=== PATIENT | female | born 1940 | race African-American/Black ===

== ENCOUNTER → 2017-10-30 | Day surgery (SDC) | payer MEDICARE, OTHER ==
[~2017-10-30] MED LIST: Ciprofloxacin 500 MG TAB ONE
== END ==
LOC: ER/OP 10:53
PROVIDERS: ATTEND Emergency Medicine
DX: Z20.811 Contact with and (suspected) exposure to meningococcus (principal)

== ENCOUNTER 2018-07-15 11:15 | Outpatient (CLI) | payer MEDICARE, OTHER ==
--- NOTE | 2018-07-15 11:52 | RAD ---
LUMBAR SPINE THREE VIEWS: History: Low back pain. FINDINGS: Comparison is made with exam of 10-17-10. Multilevel degenerative changes are again seen with minimal levoscoliosis. No fracture, subluxation, or bony destruction is identified. IMPRESSION: Lumbar spondylosis. POS: [facility]
== END 2018-07-15 11:16 | disposition home or self-care (01) ==
LOC: RAD-FRANK 11:15
PROVIDERS: ATTEND Nurse Practitioner Family
DX: M51.16 Intervertebral disc disorders with radiculopathy, lumbar region (principal); M47.26 Other spondylosis with radiculopathy, lumbar region
CPT/HCPCS: 72100

== ENCOUNTER 2018-09-06 13:51 | Emergency (ER) | payer MEDICARE, OTHER ==
--- NOTE | 2018-09-06 16:56 | ULT ---
VENOUS DUPLEX SONOGRAM LEFT LOWER EXTREMITY: 09/06/18 HISTORY: Left leg pain and edema. FINDINGS: The left common femoral vein and greater saphenous junction were evaluated along with the femoral, de ep femoral, popliteal, and posterior tibial veins. There is good color and spectral doppler flow, com pression, and augmentation. IMPRESSION: No sonographic evidence of DVT within the left lower extremity. POS: [facility]
== END 2018-09-06 16:09 | disposition home or self-care (01) ==
LOC: ERS 13:51
DX: M54.16 Radiculopathy, lumbar region (principal); E11.9 Type 2 diabetes mellitus without complications; I10 Essential (primary) hypertension; Z79.899 Other long term (current) drug therapy; Z79.84 Long term (current) use of oral hypoglycemic drugs

== ENCOUNTER 2018-10-02 13:20 | Outpatient (CLI) | payer MEDICARE, OTHER ==
--- NOTE | 2018-10-02 13:49 | RAD ---
LUMBAR SPINE 3 VIEWS: HISTORY: Low back pain. FINDINGS: Lateral views consistent of flexion, extension, and neutral positioning. Vertebral body heights are maintained. At the L3-4 level, there is 0.9 cm spondylolisthesis that develops upon flexion that is not apparent on the neutral and flexion images. Minimal degenerative retrolisthesis at the L4-5 leve l is present without abnormal translational motion at this level. Disk space narrowing most pronounc ed at the L4-5 level. Osteophytosis of the lower facets. IMPRESSION: Facet instability at the L3-4 level. POS: [facility]
--- NOTE | 2018-10-02 15:03 | MRI ---
MRI LUMBAR SPINE: HISTORY: Back pain radiating to left leg for 7 months. FINDINGS: Multiplanar, multisequence noncontrast-enhanced MR images of lumbar spine obtained. T12-L1: Unremarkable. L1-2: Disk desiccation is seen. There is disk space height loss seen. Anterior osteophyte is seen at the L1-2 level. There is mild facet hypertrophy seen. There is a broad-based disk-osteophyte com plex centrally resulting in mild but not significant degree of central stenosis. The neural foramen are patent. L2-3: Disk desiccation is seen. There is irregularity involving the inferior end plate of L2 and se don end plate of L3. There is a broad-based disk bulge with bilateral facet hypertrophy. No signifi cant degree of central stenosis seen. There is moderate left L2-3 neural foraminal narrowing. The r ight neural foramen is patent. L3-4: Disk desiccation is seen. There is a broad-based central disk protrusion seen. Bilateral fac et hypertrophy is seen. This results in mild central and lateral recess stenosis seen. There is mil d bilateral neural foraminal narrowing seen. L4-5: Disk desiccation is seen. There are Modic type II changes seen in the inferior end plate of L 4 and superior end plate of L5. There is a broad-based disk bulge with bilateral facet hypertrophy r esulting in mild central and lateral recess stenosis. Moderate bilateral neural foraminal narrowing is seen. L5-S1: There is a broad-based disk bulge with bilateral facet hypertrophy seen. The central canal i s patent. There is moderate to severe left and mild right-sided neural foraminal narrowing seen. Disk desiccation with disk space height loss seen at L4-5. Broad-based disk bulge is seen. Neural f oraminal narrowing is also present as described above. IMPRESSION: Multilevel lumbar degenerative disk changes. POS: [facility]
== END 2018-10-02 13:21 | disposition home or self-care (01) ==
LOC: TBSIIMAG 13:20
PROVIDERS: ATTEND Neurological Surgery
DX: M48.061 Spinal stenosis, lumbar region without neurogenic claudication (principal); M53.2X6 Spinal instabilities, lumbar region; M51.36 Other intervertebral disc degeneration, lumbar region
CPT/HCPCS: 72100; 72148

== ENCOUNTER 2018-11-07 08:24 | Outpatient (CLI) | payer MEDICARE, OTHER ==
--- NOTE | 2018-11-07 09:16 | RAD ---
LEFT WRIST 3 VIEWS: HISTORY: Left wrist pain. COMPARISON: None. FINDINGS: Mild degenerative changes and osteoarthrosis including the trapezium 1st metacarpal joint. No acute fracture or dislocation. IMPRESSION: Degenerative and osteoarthrosis changes without fracture or dislocation. POS: [facility]
== END 2018-11-07 08:25 | disposition home or self-care (01) ==
LOC: RAD-FRANK 08:24
PROVIDERS: ATTEND Nurse Practitioner Family
DX: M25.532 Pain in left wrist (principal); M19.032 Primary osteoarthritis, left wrist

== ENCOUNTER 2018-12-04 08:11 | Emergency (ER) | payer MEDICARE, OTHER ==
--- NOTE | 2018-12-04 09:10 | ULT ---
FUltrasound Doppler duplex venous left upper extremity: HISTORY: 78-year-old female with pain and edema at the left anterior wrist TECHNIQUE: Grayscale, color-flow, and spectral analysis, of major veins of left upper extremity. Compression and release applied to all veins except the subclavian. FINDINGS: The left internal jugular, subclavian, axillary, brachial, basilic, cephalic, radial, and ulnar, vein s, are patent, with blood flow. IMPRESSION: Negative. No venous thrombosis of left upper extremity.
== END 2018-12-04 09:24 | disposition home or self-care (01) ==
LOC: ERS 08:11
DX: M65.4 Radial styloid tenosynovitis [de Quervain] (principal); E11.9 Type 2 diabetes mellitus without complications; I10 Essential (primary) hypertension; Z79.84 Long term (current) use of oral hypoglycemic drugs; Z79.899 Other long term (current) drug therapy
CPT/HCPCS: 29125

== ENCOUNTER 2019-01-28 08:44 | Outpatient (CLI) | payer MEDICARE, OTHER ==
--- NOTE | 2019-01-28 11:26 | MRI ---
MRI LEFT WRIST: 01/28/2019 PROVIDED CLINICAL HISTORY: Left wrist pain. FINDINGS: There is a thickened and inhomogeneous appearance to the extensor carpi ulnaris tendon, at the level of the distal ulna, compatible with changes of tendinosis. The dorsal extensor and volar flexor tend ons demonstrate an otherwise normal MR appearance. There are joint effusions involving the radial carpal, distal radial ulnar, and mid carpal joints, wi th evidence for synovitis, particularly in the region of the distal radial ulnar joint. There is chr onic degenerative tearing involving the TFC complex, notably the central aspects of the TFC disk. In tact fibers of the scapholunate ligament are not identified volarly or dorsally. Intact fibers of th e lunotriquetral ligament are not definitely visualized. There is radial carpal joint space narrowing. Alignment appears anatomic. Degenerative changes are seen at the first CMC joint. The courses of the regional major neurovascular structures appear unremarkable. IMPRESSION: 1. Joint effusion and synovitis involving the mid carpal, the radial carpal, and the distal radial u lnar joints. Infectious and inflammatory arthropathy should be considered. 2. 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 Intact fibers of the lunotriq uetral ligament are not definitely identified. 3. Extensor carpi ulnaris tendinosis. POS: [facility]
== END 2019-01-28 08:45 | disposition home or self-care (01) ==
LOC: BICMRI 08:44
PROVIDERS: ATTEND Orthopaedic Surgery
DX: M65.4 Radial styloid tenosynovitis [de Quervain] (principal); M25.532 Pain in left wrist; M25.432 Effusion, left wrist; M65.88 Other synovitis and tenosynovitis, other site; M24.832 Other specific joint derangements of left wrist, not elsewhere classified; M77.9 Enthesopathy, unspecified

== ENCOUNTER 2019-03-11 16:09 | Outpatient (CLI) | payer MEDICARE, OTHER ==
--- NOTE | 2019-03-11 16:35 | RAD ---
TWO VIEW CHEST: 03/11/19 INDICATION: Cough. FINDINGS: There is enlargement of the cardiac silhouette. No significant vascular congestion. Mild interstitial prominence is seen bilaterally. No significant pleural fluid is evident. IMPRESSION: Prominent cardiac silhouette which may be related to CHF. Mild interstitial opacities may represent a ssociated interstitial edema. Recommend correlation for evidence of fluid overload. Imaging follow-up may also be obtained if necessary. POS: [facility]
== END 2019-03-11 16:10 | disposition home or self-care (01) ==
LOC: RAD-FRANK 16:09
PROVIDERS: ATTEND Nurse Practitioner Family
DX: R05 Cough (principal); R91.8 Other nonspecific abnormal finding of lung field
CPT/HCPCS: 71046

== ENCOUNTER 2019-03-19 13:11 | Outpatient (CLI) | payer MEDICARE, OTHER ==
[2019-03-19 16:21] LABS: #Lymphocytes 3.7 thou/uL (1.20-3.40); #Monocytes 0.9 thou/uL (0.11-0.59); %Basophils 0.5 % (0.0-1.0); %Eosinophils 0.4 % (0.0-10.0); %Lymphocytes 38.1 % (21.0-51.0); %Monocytes 9.3 % (0.0-10.0); %Neutrophils 51.7 % (42.0-75.0); Hemoglobin 12.4 g/dL (12.0-16.0); Mean Corpuscular HGB CONC 30.9 g/dL (32.0-36.0); Mean Corpuscular Hemoglobin 28.1 pg (27.0-31.0); Mean Corpuscular Volume 90.8 fL (78.0-98.0); Mean Platelet Volume 8.3 fL (7.4-10.4); Platelet Count 144 thou/uL (130-400); RBC Distribution Width 15.9 % (11.5-14.5); White Blood Cell (WBC) Count 9.7 thou/uL (4.8-10.8)
[2019-03-19 16:40] LABS: Anion Gap 19 mmol/L (10-20); BUN (Urea Nitrogen) 35 mg/dL (9.8-20.1); Calc. Creatinine Clearance 0 mL/min (70-130); Calcium 10.8 mg/dL (7.8-10.44); Carbon Dioxide 27 mmol/L (23-31); Chloride 101 mmol/L (98-107); Estimated GFR-MDRD 47; Glucose 89 mg/dL (83-110); Sodium 143 mmol/L (136-145)
[2019-03-19 19:37] LABS: Bacteria/HPF None Seen HPF (None Seen); Bilirubin Negative (Negative); Blood, Urine Negative (Negative); Clarity Clear (Clear); Glucose, Urine (Dipstick) Normal (Negative); Leukocyte 25 Leu/uL (Negative); Mucous/LPF Rare LPF (<2+); Nitrite Negative (Negative); Protein, Urine (Dipstick) Negative (Neg-Trace); RBC/HPF 0-3 HPF (0-3); Squamous Epithelial 0-3 HPF (0-3); Urobilinogen Normal mg/dL (Less than 2)
== END 2019-03-19 13:12 | disposition home or self-care (01) ==
LOC: LABBT 13:11
PROVIDERS: ATTEND Orthopaedic Surgery Hand Surgery
DX: Z01.818 Encounter for other preprocedural examination (principal); M65.4 Radial styloid tenosynovitis [de Quervain]
CPT/HCPCS: 80048; 81001; 85025; 93005; 93010

== ENCOUNTER 2019-03-23 11:46 | Day surgery (SDC) | payer MEDICARE, OTHER ==
[2019-03-19 14:07] VITALS: BMI 45.8
[2019-03-23] MEDS ORDERED: Betamet Acet/Betamet Na Ph 30 MG/5 ML VIAL ONE (13:23)
[2019-03-23] MEDS ORDERED: Bupivacaine PF 0.5% 30 ML VIAL ONE (13:23)
[2019-03-23] MEDS ORDERED: Fentanyl 100 MCG/2 ML VIAL ONE (13:33)
[2019-03-23] MEDS ORDERED: Bacitracin Zinc Ointment 30 gm TUBE ONE (14:29)
[2019-03-23] MEDS ORDERED: Ketorolac Tromethamine 30 MG/ML VIAL ONE (15:25)
[2019-03-23] MEDS ORDERED: Ondansetron PF 4 MG/2 ML Vial ONE (16:11)
[2019-03-23] MEDS ORDERED: PROPOFOL 200 MG/20 ML VIAL ONE (16:11)
[2019-03-23] MEDS ORDERED: Lidocaine 1% PF 5 ML VIAL ONE (16:11)
[2019-03-23] MEDS ORDERED: diphenhydrAMINE 50 MG/ML VIAL ONE (16:11)
--- NOTE | 2019-03-23 21:00 | OP ---
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 PROCEDURES PERFORMED: 1. Left first dorsal compartment release, wrist. 2. Celestone injection. TOURNIQUET TIME: 10 minutes. ANESTHESIA: General LMA technique, complemented by 20 mL of 0.5% Marcaine block, 10 mL given preincision, 10 mL given after wound was closed. INDICATIONS FOR PROCEDURE: Failed conservative treatment to include injections, bracing, therapy, medications, and cessation activity. DESCRIPTION OF PROCEDURE: After successful general LMA technique, the limb was prepped and draped. Time-out was done appropriately. We outlined a zigzag incision of 2.5 cm centered on the radial styloid and first dorsal compartment. After exsanguination, we then inflated the tourniquet to 250 mmHg pressure. We gave the 1st 10 mL of injection along the zigzag incision. Waited for 2 minutes and carried the incision through the skin and subcutaneous tissue until we found the cutaneous branch of the superficial radial nerve. All were dissected from the center of the field and protected. We then placed two right angle in and a self-retaining tractor, identified the retinaculum and released it in the midline of the retinaculum slightly more dorsal and palmar to prevent subluxation. We found that we had a separate extensor pollicis brevis compartment which was released separately and we also had three sleeves of the abductor pollicis. We then placed Celestone 5 mL along the tendon sheath, we deflated the tourniquet and obtained hemostasis, and then closed the incision with interrupted 4-0 nylon mattress pattern. There was no tenosynovectomy required because there was no tenosynovitis. There was no tenosynovial thickening. Job ID: [id number]
== END 2019-03-23 16:25 | disposition home or self-care (01) ==
LOC: SDC 11:46
PROVIDERS: ATTEND Orthopaedic Surgery Hand Surgery
PROC: 0LN60ZZ Release Left Lower Arm and Wrist Tendon, Open Approach (ICD-10-PCS; principal; 2019-03-23)
DX: M65.4 Radial styloid tenosynovitis [de Quervain] (principal); K21.9 Gastro-esophageal reflux disease without esophagitis; I10 Essential (primary) hypertension; E78.00 Pure hypercholesterolemia, unspecified; E11.9 Type 2 diabetes mellitus without complications; Z79.84 Long term (current) use of oral hypoglycemic drugs; Z79.899 Other long term (current) drug therapy
CPT/HCPCS: J0131; J0690; J0702; J1200; J1885; J2001; J2405; J2704; J3010; S0020

== ENCOUNTER 2020-08-05 12:04 | Emergency (ER) | payer MEDICARE, OTHER ==
[2020-08-05 12:50] LABS: #Eosinphils 0.1 thou/uL (0.0-0.7); #Lymphocytes 1.6 thou/uL (1.20-3.40); #Monocytes 0.6 thou/uL (0.11-0.59); %Basophils 0.1 % (0.0-1.0); %Eosinophils 0.7 % (0.0-10.0); %Lymphocytes 19.6 % (21.0-51.0); %Neutrophils 72.6 % (42.0-75.0); Mean Corpuscular HGB CONC 32.3 g/dL (32.0-36.0); Mean Corpuscular Hemoglobin 30.1 pg (27.0-31.0); Mean Platelet Volume 8.2 fL (7.4-10.4); Platelet Count 99 thou/uL (130-400); Red Blood Cell (RBC) Count 3.99 mill/uL (4.20-5.40); White Blood Cell (WBC) Count 8.3 thou/uL (4.8-10.8)
[2020-08-05 13:04] LABS: ALT (SGPT) 9 U/L (8-55); AST (SGOT) 13 U/L (5-34); Albumin 4.1 g/dL (3.4-4.8); Alkaline Phosphatase 79 U/L (40-110); Anion Gap 18 mmol/L (10-20); BUN (Urea Nitrogen) 22 mg/dL (9.8-20.1); Bilirubin, Total 0.5 mg/dL (0.2-1.2); Calc. Creatinine Clearance 0 mL/min (70-130); Calcium 9.4 mg/dL (7.8-10.44); Carbon Dioxide 25 mmol/L (23-31); Chloride 101 mmol/L (98-107); Estimated GFR-MDRD 64; Globulin 3.2 g/dL (2.4-3.5); Glucose 140 mg/dL (83-110); Lipase 28 U/L (8-78); Platelet Morphology Comment Appears Decreased; Potassium 3.7 mmol/L (3.5-5.1); Protein, Total 7.3 g/dL (6.0-8.3); RBC Morphology Normal; Sodium 140 mmol/L (136-145)
--- NOTE | 2020-08-05 13:37 | RAD ---
PORTABLE CHEST ONE VIEW: 08/05/20 at 12:43 p.m. HISTORY: Nausea and vomiting, lightheadedness. COMPARISON: 03/10/19. FINDINGS: The heart is enlarged. The aorta is tortuous. The lungs are expanded without lobar consolidation, pne umothoraces, louie pulmonary edema or pleural effusions. IMPRESSION: No acute process. POS: [facility]
[2020-08-05 14:23] LABS: Bacteria/HPF None Seen HPF (None Seen); Bilirubin Negative (Negative); Blood, Urine Negative (Negative); Clarity Clear (Clear); Glucose, Urine (Dipstick) Normal (Negative); Ketone, Urine Negative (Negative); Leukocyte 25 Leu/uL (Negative); Nitrite Negative (Negative); Protein, Urine (Dipstick) Negative (Neg-Trace); RBC/HPF 0-3 HPF (0-3); Specific Gravity, Urine 1.016 (1.002-1.036); Squamous Epithelial 0-3 HPF (0-3); Urobilinogen Normal mg/dL (Less than 2); pH, Urine 5.5 (5.0-9.0)
== END 2020-08-05 14:17 | disposition home or self-care (01) ==
LOC: ERS 12:04
DX: R11.2 Nausea with vomiting, unspecified (principal); R42 Dizziness and giddiness; T40.425A Adverse effect of tramadol, initial encounter
CPT/HCPCS: 36415; 71045; 80053; 81003; 81015; 83690; 84484; 85025; 93005

== ENCOUNTER 2021-06-26 10:08 | Outpatient (CLI) | payer MEDICARE, OTHER | END 2021-06-26 10:09 | disposition home or self-care (01) | LOC: TBSIIMAG 10:08 | PROVIDERS: ATTEND Nurse Practitioner Family | DX: M48.062 Spinal stenosis, lumbar region with neurogenic claudication (principal); M47.816 Spondylosis without myelopathy or radiculopathy, lumbar region | CPT/HCPCS: 72100; 72148 ==

== ENCOUNTER 2023-02-26 20:27 | Emergency (ER) | payer MEDICARE, OTHER ==
[2023-02-26 22:50] LABS: Bacteria/HPF None Seen HPF (None Seen); Bilirubin Negative (Negative); Blood, Urine Negative (Negative); CAUTI Indications for Culture Alt mental st,lethar; Clarity Clear (Clear); Glucose, Urine (Dipstick) Normal (Negative); Ketone, Urine Negative (Negative); Leukocyte Negative Leu/uL (Negative); Nitrite Negative (Negative); Protein, Urine (Dipstick) Negative (Neg-Trace); RBC/HPF 0-3 HPF (0-3); Specific Gravity, Urine 1.017 (1.002-1.036); Squamous Epithelial None Seen HPF (0-3); Urobilinogen Normal mg/dL (Less than 2); WBC/HPF 0-3 HPF (0-3); pH, Urine 6.5 (5.0-9.0)
[2023-02-26 22:52] LABS: Urine Culture Reflex No No
[2023-02-26] MEDS ORDERED: Gabapentin 100 MG CAP PO SCH (23:59)
== END 2023-02-27 01:27 | disposition home or self-care (01) ==
LOC: ERS 20:27
DX: G57.91 Unspecified mononeuropathy of right lower limb (principal); I10 Essential (primary) hypertension; E78.5 Hyperlipidemia, unspecified; E11.9 Type 2 diabetes mellitus without complications; Z79.84 Long term (current) use of oral hypoglycemic drugs; Z79.899 Other long term (current) drug therapy
CPT/HCPCS: 71045; 81001

== ENCOUNTER 2023-10-23 07:42 | Emergency (ER) | payer MEDICARE, OTHER ==
[2023-10-23 08:16] LABS: #Eosinphils 0.1 thou/uL (0.0-0.7); #Monocytes 0.5 thou/uL (0.11-0.59); #Neutrophils 3.4 thou/uL (1.40-6.50); %Basophils 0.3 % (0.0-1.0); %Lymphocytes 32.3 % (21.0-51.0); %Monocytes 7.8 % (0.0-10.0); %Neutrophils 58.3 % (42.0-75.0); Hematocrit 36.4 % (36.0-47.0); Hemoglobin 11.2 g/dL (12.0-16.0); Mean Corpuscular HGB CONC 30.8 g/dL (32.0-36.0); Mean Corpuscular Hemoglobin 29.4 pg (27.0-31.0); Mean Corpuscular Volume 95.5 fl (78.0-98.0); Mean Platelet Volume 10.4 fL (7.4-10.4); Platelet Count 96 10x3/uL (130-400); Red Blood Cell (RBC) Count 3.81 mill/uL (4.20-5.40); White Blood Cell (WBC) Count 5.8 10x3/uL (4.8-10.8)
[2023-10-23 08:40] LABS: ALT (SGPT) 8 U/L (8-55); AST (SGOT) 16 U/L (5-34); Albumin 3.8 g/dL (3.4-4.8); Alkaline Phosphatase 82 U/L (40-110); Anion Gap 14 mmol/L (10-20); BUN (Urea Nitrogen) 33 mg/dL (9.8-20.1); Bilirubin, Total 0.5 mg/dL (0.2-1.2); Calc. Creatinine Clearance 0 mL/min (70-130); Calcium 9.4 mg/dL (7.8-10.44); Carbon Dioxide 25 mmol/L (23-31); CellaVision Operator ID LAB.KW3; Chloride 103 mmol/L (98-107); Estimated GFR 32; Globulin 3.4 g/dL (2.4-3.5); Glucose 81 mg/dL (83-110); Lipase 53 U/L (8-78); Macrocytosis SLIGHT = 6-15 cells HPF (0-5); Magnesium 1.4 mg/dL (1.6-2.6); Platelet Adequacy Comment Platelets Decreased; Polychromasia SLIGHT = 2-3 cells HPF (0-2); Protein, Total 7.2 g/dL (5.8-8.1); Sodium 138 mmol/L (136-145); Target Cells SLIGHT = 2-5 cells HPF (0-1)
[2023-10-23 08:44] LABS: Troponin I Less than 0.010 ng/mL (< 0.028)
[2023-10-23] MEDS ORDERED: Magnesium 2 GM/50 ML BAG (IN WATER) ONE (09:15)
== END 2023-10-23 11:12 | disposition home or self-care (01) ==
LOC: ERS 07:42
DX: R00.2 Palpitations (principal); D64.9 Anemia, unspecified; E11.22 Type 2 diabetes mellitus with diabetic chronic kidney disease; N18.9 Chronic kidney disease, unspecified; I12.9 Hypertensive chronic kidney disease with stage 1 through stage 4 chronic kidney disease, or unspecified chronic kidney disease; E16.2 Hypoglycemia, unspecified; E83.42 Hypomagnesemia; E78.5 Hyperlipidemia, unspecified; J45.909 Unspecified asthma, uncomplicated; Z79.84 Long term (current) use of oral hypoglycemic drugs; Z79.899 Other long term (current) drug therapy
CPT/HCPCS: 36415; 36416; 71045; 80053; 83690; 83735; 83880; 84443; 84484; 85025; 93005; 96365; J3475

== ENCOUNTER 2023-12-06 18:46 | Emergency (ER) | payer MEDICARE, OTHER ==
[2023-12-06] MEDS ORDERED: Furosemide 40 MG (4 mL) VIAL ONE (19:35)
[2023-12-06 20:37] LABS: #Basophils Less than 0.03 10x3/uL (0.0-0.2); %Basophils 0.1 % (0.0-1.0); %Lymphocytes 26.6 % (21.0-51.0); %Monocytes 10.1 % (0.0-10.0); %Neutrophils 61.9 % (42.0-75.0); Hematocrit 37.7 % (36.0-47.0); Hemoglobin 11.8 g/dL (12.0-16.0); Mean Corpuscular HGB CONC 31.3 g/dL (32.0-36.0); Mean Corpuscular Hemoglobin 29.9 pg (27.0-31.0); Mean Corpuscular Volume 95.4 fL (78.0-98.0); Platelet Count 104 10x3/uL (130-400); RBC Distribution Width 15.9 % (11.5-14.5); Red Blood Cell (RBC) Count 3.95 mill/uL (4.20-5.40)
[2023-12-06 20:48] LABS: ALT (SGPT) 10 U/L (8-55); AST (SGOT) 16 U/L (5-34); Albumin 4.2 g/dL (3.4-4.8); Alkaline Phosphatase 86 U/L (40-110); Anion Gap 14 mmol/L (10-20); BUN (Urea Nitrogen) 28 mg/dL (9.8-20.1); Bilirubin, Total 0.7 mg/dL (0.2-1.2); Calc. Creatinine Clearance 0 mL/min (70-130); Calcium 10.4 mg/dL (7.8-10.44); Carbon Dioxide 29 mmol/L (23-31); Chloride 100 mmol/L (98-107); Estimated GFR 46; Globulin 3.5 g/dL (2.4-3.5); Glucose 90 mg/dL (83-110); Lipase 61 U/L (8-78); Magnesium 1.6 mg/dL (1.6-2.6); Potassium 4.1 mmol/L (3.5-5.1); Protein, Total 7.7 g/dL (5.8-8.1); Sodium 139 mmol/L (136-145)
[2023-12-06 20:49] LABS: Troponin I Less than 0.010 ng/mL (< 0.028)
== END 2023-12-06 22:30 | disposition home or self-care (01) ==
LOC: ERS 18:46
DX: R00.2 Palpitations (principal); R22.43 Localized swelling, mass and lump, lower limb, bilateral; I51.7 Cardiomegaly; R06.01 Orthopnea; I10 Essential (primary) hypertension; E11.9 Type 2 diabetes mellitus without complications; E78.5 Hyperlipidemia, unspecified; Z79.84 Long term (current) use of oral hypoglycemic drugs; Z79.899 Other long term (current) drug therapy
CPT/HCPCS: 71045; 80053; 83690; 83735; 83880; 84484; 85025; 93005; 96374; J1940

== ENCOUNTER 2024-01-28 16:00 | Outpatient (CLI) | payer MEDICARE, OTHER | END 2024-01-28 16:01 | disposition home or self-care (01) | LOC: SLEEPLAB 16:00 | PROVIDERS: ATTEND Internal Medicine Cardiovascular Disease | DX: G47.33 Obstructive sleep apnea (adult) (pediatric) (principal); E66.9 Obesity, unspecified; I11.0 Hypertensive heart disease with heart failure; I50.9 Heart failure, unspecified; G47.00 Insomnia, unspecified; Z68.43 Body mass index [BMI] 50.0-59.9, adult | CPT/HCPCS: 95800 ==

== ENCOUNTER 2025-04-16 10:51 | Emergency (ER) | payer MEDICARE, OTHER ==
[2025-04-16 12:10] LABS: ALT (SGPT) 9 U/L (Less than 34); AST (SGOT) 20 U/L (11-34); Albumin 3.8 g/dL (3.1-4.5); Alkaline Phosphatase 125 U/L (40-110); Anion Gap 18 mmol/L (10-20); BUN (Urea Nitrogen) 30 mg/dL (9.8-20.1); Bilirubin, Total 0.5 mg/dL (0.3-1.2); Calc. Creatinine Clearance 0 mL/min (70-130); Calcium 9.6 mg/dL (7.8-10.44); Carbon Dioxide 27 mmol/L (23-31); Chloride 98 mmol/L (98-107); Globulin 4.1 g/dL (2.4-3.5); Glucose 119 mg/dL (83-110); Potassium 4.3 mmol/L (3.5-5.1); Sodium 139 mmol/L (136-145)
[2025-04-16 12:14] LABS: #Basophils Less than 0.03 10x3/uL (0.0-0.2); #Eosinophils 0.04 10x3/uL (0.0-0.7); #Monocytes 0.49 10x3/uL (0.11-0.59); #Neutrophils 4.45 10x3/uL (1.40-6.50); %Basophils 0.3 % (0.0-1.0); %Eosinophils 0.6 % (0.0-10.0); %Lymphocytes 28.3 % (21.0-51.0); %Monocytes 7.0 % (0.0-10.0); %Neutrophils 63.5 % (42.0-75.0); Hematocrit 36.6 % (36.0-47.0); Hemoglobin 11.4 g/dL (12.0-16.0); Mean Corpuscular Hemoglobin 27.9 pg (27.0-31.0); Mean Corpuscular Volume 89.7 fL (78.0-98.0); Platelet Count 112 10x3/uL (130-400); Red Blood Cell (RBC) Count 4.08 mill/uL (4.20-5.40); Troponin I Less than 0.010 ng/mL (< 0.028); White Blood Cell (WBC) Count 7.00 10x3/uL (4.8-10.8)
[2025-04-16 15:49] LABS: Troponin I Less than 0.010 ng/mL (< 0.028)
== END 2025-04-16 16:00 | disposition home or self-care (01) ==
LOC: ERS 10:51
DX: R07.9 Chest pain, unspecified (principal); I10 Essential (primary) hypertension; E11.9 Type 2 diabetes mellitus without complications
CPT/HCPCS: 71045; 80053; 83880; 84484; 85025; 93005; 94760